=== PATIENT | male | born 1980 | race Caucasian/White ===

== ENCOUNTER 2017-06-09 17:20 | Emergency (ER) | payer OTHER ==
[~2017-06-09] VITALS: Ht 190.5 cm; Wt 104.3 kg
[2017-06-09 17:35] VITALS: BP 146/86
--- NOTE | 2017-06-09 18:08 | PHYS DOC ---
Adult General Chief Complaint Chief Complaint: BACK PAIN OR INJURY HPI HPI Patient is a 36 year old male who presents with right-sided lumbar back pain. States he has a history of compression fractures secondary to trauma while in the the [employer] serving [place]. He was doing squats with 120 pounds and he was off balance and came up more leaning towards a right when he started having sharp pain in the right paraspinal lumbar area. He denies any numbness or tingling in his leg. He mainly went home he took a Flexeril and slept for couple hours but states the pain has been getting worse. He denies any midline tenderness is more in the right paraspinal area. He states it feels like he had a compression fracture again. Review of Systems Review of Systems Constitutional: Denies fever or chills [] Eyes: Denies change in visual acuity, redness, or eye pain [] HENT: Denies nasal congestion or sore throat [] Respiratory: Denies cough or shortness of breath [] Cardiovascular: No additional information not addressed in HPI [] GI: Denies abdominal pain, nausea, vomiting, bloody stools or diarrhea [] : Denies dysuria or hematuria [] Musculoskeletal: Positive for lumbar back pain Integument: Denies rash or skin lesions [] Neurologic: Denies headache, focal weakness or sensory changes [] Endocrine: Denies polyuria or polydipsia [] Allergies Allergies Allergies Coded Allergies Type Severity Reaction Last Updated Verified Penicillins Allergy Unknown 06/09/17 Yes Physical Exam Physical Exam Constitutional: Well developed, well nourished, no acute distress, non-toxic appearance. [] HENT: Normocephalic, atraumatic, bilateral external ears normal, oropharynx moist, no oral exudates, nose normal. [] Eyes: PERRLA, EOMI, conjunctiva normal, no discharge. [] Neck: Normal range of motion, no tenderness, supple, no stridor. [] Cardiovascular:Heart rate regular rhythm, no murmur [] Lungs & Thorax: Bilateral breath sounds clear to auscultation [] Abdomen: Bowel sounds normal, soft, no tenderness, no masses, no pulsatile masses. [] Skin: Warm, dry, no erythema, no rash. [] Back: No midline tenderness or step-offs appreciated, tender palpation of the right L3 to L5 area paraspinally, no CVA tenderness. [] Extremities: No tenderness, no cyanosis, no clubbing, ROM intact, no edema. 5 out of 5 strength in with flex and extension bilateral lower extremities at the hips, knees, ankles, sensation intact to light touch to bilateral lower extremities. Neurologic: Alert and oriented X 3, normal motor function, normal sensory function, no focal deficits noted. [] Psychologic: Affect normal, judgement normal, mood normal. [] EKG EKG [] Radiology/Procedures Radiology/Procedures 3 views of the lumbar spine shows an old compression deformity of T12, no fractures are appreciated, normal alignment, no foreign bodies appreciated, as interpreted by me. Impressions: Lumbar back pain Course & Med Decision Making Course & Med Decision Making Pertinent Labs and Imaging studies reviewed. (See chart for details) 3 views of the lumbar spine didn't show any acute fractures. He is tender paraspinally. He tried Flexeril already. He is encouraged to try ice at home, he can use Biofreeze, or other topical creams. He is being discharged with [place] and Valium and instructed not to use these together. He is instructed not to use his Flexeril while he is on these medicines. He is instructed if he has any weakness in his legs or numbness to return back to ER. He is to follow-up with his [employer] physician within the next 1-2 days. He is agreeable to the plan and being discharged in stable condition this time. He did receive 2 tablets of 5/325 [place]. Dragon Disclaimer Dragon Disclaimer This chart was dictated in whole or in part using Voice Recognition software in a busy, high-work load, and often noisy Emergency Department environment. It may contain unintended and wholly unrecognized errors or omissions. Departure Departure: Impression: Primary Impression: Back pain Disposition: 01 HOME, SELF-CARE Condition: STABLE Referrals: PCP,UNKNOWN (PCP) Patient Instructions: Back Pain, Adult Additional Instructions: The x-ray didn't show any obvious fractures or malalignments. You do not have any neurologic findings such as weakness in your legs or numbness. Your being discharged home. You were given 2 tablets of 5/325 [place] in the ER your being discharged with 12 tablets of [place] he can use 1-2 tablets every 6 hours as needed for pain. You can also use Valium 1-2 tablets every 8 hours for muscle spasm. Do not use [place] and Valium together or drink alcohol or drive while using these medicines. Do not use Flexeril while you are taking any of these other medicines I prescribed you today. You can apply ice for the first 24 hours after injury, he can also try Biofreeze, icy hot or other topical creams. If you develop weakness in your legs, numbness or other concerns she need to return back to emergency department. Please follow-up with your primary care physician within the next few days. Scripts Hydrocodone Bit/Acetaminophen (NORCO 5-325 TABLET) 1 Each Tablet 1-2 TAB PO PRN Q6HRS Y for PAIN, #12 TAB 0 Refills Prov: TEGAN FAUST MD 06/09/17 Diazepam (VALIUM) 2 Mg Tablet 1-2 MG PO TID Y for MUSCLE PAIN, #10 TAB Prov: TEGAN FAUST MD 06/09/17 Problem Qualifiers Primary Impression: Back pain Back pain location: low back pain Chronicity: acute Back pain laterality: right Sciatica presence: without sciatica Qualified Codes: M54.5 - Low back pain TEGAN FAUST MD Jun 09, 2017 18:08
[2017-06-09] MEDS ORDERED: HYDR-971 PO (19:06)
[2017-06-09] MEDS ORDERED: DIAZ2TAB PO (19:06)
[2017-06-09] MEDS ORDERED: HYDROcodone/APAP 5/325MG 1 TAB TABLET PO ONE (19:15)
--- NOTE | 2017-06-10 08:22 | RAD ---
Lumbar spine, 3 views, 06/09/2017: History: Low back pain There is slight loss of height anteriorly of the T12 vertebral body. The patient gives a history of a previous compression fracture. This is probably chronic. The lumbar vertebral heights are well-maintained. The intervertebral disc spaces are well preserved. There are mild scattered marginal spurs. The paraspinous soft tissues are unremarkable. IMPRESSION: 1. Slight anterior wedging of the T12 vertebral body, most likely old. Comparison with prior lumbar spine radiographs if available may be helpful for confirmation. 2. Mild scattered marginal spurs in the lumbar spine.
== END 2017-06-09 19:22 | disposition home or self-care (01) ==
LOC: ER 17:20
DX: M54.5 Low back pain (principal); Z88.0 Allergy status to penicillin; X58.XXXA Exposure to other specified factors, initial encounter; Y93.89 Activity, other specified; Y99.8 Other external cause status; Y92.89 Other specified places as the place of occurrence of the external cause
CPT/HCPCS: 72100; 99284